=== PATIENT | female | born 1970 | race Native Hawaiian/Other Pacific Islander ===

== ENCOUNTER 2018-04-11 06:30 | Inpatient (IN) | payer MEDICARE ==
[2018-03-31 08:55] VITALS: BMI 23.6
[2018-04-11] MEDS ORDERED: Iodixanol 320 MG/ML 200 ML BOTTLE IV ONE (06:57)
[2018-04-11] MEDS ORDERED: HEPARIN-NS 5,000 UNITS/500 ML 10,000 UNIT/1,000 ML BAG IV ONE (06:57)
[2018-04-11] MEDS ORDERED: Sodium Chloride 0.9% 20 ML IV ONE (06:58)
[2018-04-11] MEDS ORDERED: Thrombin Topical 20,000 Intl Units Spray Kit TOP ONE (06:58)
[2018-04-11] MEDS ORDERED: Midazolam 2 MG/2 ML VIAL ONE (07:25)
[2018-04-11] MEDS ORDERED: Propofol 10 mg/ml Inj (20 ML) ONE (07:25)
[2018-04-11] MEDS ORDERED: ceFAZolin 1 gm FROZEN Premix 1 GM/50 ML ML IVPB ONE (07:59)
[2018-04-11] MEDS ORDERED: White Petrolatum/Mineral Oil Ophth Oint(3.5 gm) ONE (09:51)
[2018-04-11] MEDS ORDERED: ePHEDrine 50 mg/ml Inj ONE (09:51)
[2018-04-11] MEDS ORDERED: Lidocaine Hydrochloride 5 ML INJ ONE (09:51)
[2018-04-11] MEDS ORDERED: Rocuronium 10 mg/ml (10 ml) ONE (09:51)
[2018-04-11] MEDS ORDERED: Neostigmine Methylsulfate 3mg/3ml Syringe IV ONE (12:42)
--- NOTE | 2018-04-11 13:18 | PCM.SURG1 ---
<Sarah Borja - Last Filed: 04/11/18 13:15> Surgeon's Initial Post Op Note - Surgeon's Notes Surgeon: Dr. Iniguez [employer] Tester: Dr. Sarah Borja, PGY-3, Nisha Villasenor MS4 Type of Anesthesia: General Endo Pre-Operative Diagnosis: Peripheral Vascular Disease Operative Findings: See Operative Report Post-Operative Diagnosis: Peripheral Vascular Disease Operation Performed: Right Popliteal-Posterior Tibial Bypass with Left arm Cephalic Vein [place] Specimen/Specimens Removed: N/A Estimated Blood Loss: EBL {In ML}: 200 Blood Products Given: N/A Drains Used: No Drains Post-Op Condition: Good Date of Surgery/Procedure: 04/11/18 Time of Surgery/Procedure: 08:00 <Salvatore Iniguez Jr. - Last Filed: 04/11/18 16:01> Surgeon's Initial Post Op Note - Surgeon's Notes Operation Performed: and operative angiogram
[2018-04-11] MEDS: HYDROmorphone 0.5 mg/0.5 ml ISec IVP PRN ×3 (13:46→15:00)
--- NOTE | 2018-04-11 15:19 | RAD ---
Date of service: 04/11/2018 PROCEDURE: Intraoperative Fluoroscopy. HISTORY: RT. POPLITEAL BYPASS FINDINGS: Fluoroscopic assistance was provided for right leg angiogram. Please refer to the operative report from JOE Farris.
[2018-04-11] MEDS ORDERED: Oxycodone/Acetaminophen 5/325 mg Tab PO PRN (15:39)
[2018-04-11] MEDS: HYDROmorphone 1 mg/ml ISec IVP PRN ×2 (16:09→22:09)
[2018-04-11] MEDS ORDERED: Pneumococcal 23-Valent Vaccine IM ONE (17:39)
--- NOTE | 2018-04-12 01:09 | OP ---
PROCEDURE DATE: 04/11/2018 PREOPERATIVE DIAGNOSES: Rest pain, right foot ischemic ulceration. PROCEDURES CARRIED OUT: Right popliteal to posterior tibial bypass below the ankle with intraoperative arteriogram and vein harvest from left cephalic vein, left arm. SURGEON: Salvatore Iniguez Jr., MD FURNITURE DIPPER: Sarah Borja DO ANESTHESIOLOGIST: Declan Flannery DO ANESTHESIA: General anesthesia. INDICATION FOR PROCEDURE: A 48-year-old woman with ischemic ulceration of the right foot, attempted endovascular intervention, which was unsuccessful. OPERATIVE FINDINGS: Completion of the arteriogram was unsatisfactory. It showed that to the distal anastomosis, there is a high-grade stenosis/occlusion. Nonetheless, there is a brisk flow, good Doppler signals and given the circumstances and difficulty attempting to remediate this, I stopped and carried out no procedures on the basis of the completion arteriogram. The vein had been assumed on the basis of the ultrasound exam to be a decent sized vein in the thigh. However on direct examination in the operating room prior to the operation by ultrasound, we were unable to locate the vein, and the segments of the vein were opened. This is consistent with previous history of interventions. Subsequently, we measured, carried out, dissected the cephalic vein from the left shoulder from the wrist . We were able to dissect and identify this. After we ligated tributaries, we then brought this over and then anastomosed in a reversed fashion to the posterior tibial artery at the ankle and then anastomosed it to the popliteal artery at the knee. On completion of this, there was excellent flow and there were good Doppler signals. Completion of the arteriogram was unsatisfactory as I mentioned above, but we carried out no further intervention after that. Blood loss for the procedure was 200 mL. The operation was more difficult than usual due to the problems associated with identifying and finding a vein and secondary to the scar tissue at the ankle from multiple previous orthopedic interventions. OPERATION CARRIED OUT: Right popliteal to posterior tibial bypass below ankle with reversed cephalic vein harvested from left arm. Salvatore Iniguez Jr., MD cc: Leonel Guillen MD [facility]ENTER[facility]
[2018-04-12 06:35] LABS: BASO # 0.1 K/uL (0.0-0.2); BASO % 0.8 % (0.0-2.0); EOS % 0.1 % (0.0-4.0); HEMOGLOBIN 9.9 g/dL (11.0-16.0); LYMPH # 1.2 K/uL (1.0-4.3); LYMPH % 14.8 % (20.0-40.0); MEAN CELL VOLUME 90.1 fL (81.0-99.0); MEAN CORPUSCULAR HEMOGLOBIN 30.6 pg (27.0-31.0); MEAN PLATELET VOLUME 8.7 fL (7.2-11.7); MONO # 0.7 K/uL (0.0-0.8); MONO % 9.2 % (0.0-10.0); NEUT # 5.9 K/uL (1.8-7.0); NEUT % 75.1 % (50.0-75.0); RBC 3.22 Mil/uL (3.80-5.20); RED CELL DISTRIBUTION WIDTH 13.5 % (11.5-14.5); WHITE BLOOD COUNT 7.8 K/uL (4.8-10.8)
--- NOTE | 2018-04-12 06:53 | CP.PCM.CON ---
<Socorro Brewer - Last Filed: 04/12/18 10:37> History of Present Illness - History of Present Illness History of Present Illness: Patient is a 48 yo female with a history of PVD and T2DM who presents s/p R popliteal-posterior tibial bypass with L arm cephalic vein. She is post-op day 1. She states her leg is in pain but it is controlled with medication. She just had the [place] removed and has not yet urinated or had a BM. She is able to tolerate PO intake. She states that at home she utilizes a cane to walk. 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 Guillen Review of Systems - Constitutional Constitutional: absent: Chills, Fatigue, Fever, Headache - EENT Eyes: absent: Change in Vision Ears: absent: Decreased Hearing Nose/Mouth/Throat: absent: Nasal Congestion, Sore Throat - Cardiovascular Cardiovascular: absent: Chest Pain, Diaphoresis, Dyspnea, Palpitations - Respiratory Respiratory: absent: Cough, Dyspnea, Hemoptysis - Gastrointestinal Gastrointestinal: absent: Abdominal Pain, Diarrhea, Nausea, Vomiting - Genitourinary Genitourinary: absent: Hematuria - Musculoskeletal Musculoskeletal: As Per HPI - Integumentary Integumentary: As Per HPI - Neurological Neurological: absent: Dizziness, Focal Weakness, Sensory Deficit - Psychiatric Psychiatric: absent: Anxiety, Depression - Endocrine Endocrine: absent: Fatigue, Palpitations - Hematologic/Lymphatic Hematologic: absent: Easy Bleeding, Easy Bruising, Lymphadenopathy Past Patient History - Infectious Disease Hx of Infectious Diseases: None - Tetanus Immunizations Tetanus Immunization: Unknown - Past Medical History & Family History Past Medical History?: Yes Past Family History: Reviewed and not pertinent - Past Social History Smoking Status: Former Smoker Chewing Tobacco Use: No Cigar Use: No Alcohol: None Drugs: Denies Home Situation {Lives}: With Family (son) Domestic Violence: Negative - CARDIAC Hx Cardiac Disorders: Yes Hx Circulatory Problems: Yes Hx Peripheral Edema: Yes (Right ankle) Hx Peripheral Vascular Disease: Yes - PULMONARY Hx Respiratory Disorders: No - NEUROLOGICAL Hx Neurological Disorder: Yes Hx Migraine: Yes Hx Paralysis: No Hx Transient Ischemic Attacks (TIA): Yes (15 years ago) - HEENT Hx HEENT Problems: No - RENAL Hx Chronic Kidney Disease: No - ENDOCRINE/METABOLIC Hx Endocrine Disorders: Yes Hx Diabetes Mellitus Type 2: Yes - HEMATOLOGICAL/ONCOLOGICAL Hx Blood Disorders: No - INTEGUMENTARY Hx Dermatological Problems: Yes Other/Comment: Healing close ulcer lower right leg - MUSCULOSKELETAL/RHEUMATOLOGICAL Hx Musculoskeletal Disorders: Yes Hx Back Pain: Yes Hx Falls: No Hx Fractures: Yes (Right ankle) - GASTROINTESTINAL Hx Gastrointestinal Disorders: No - GENITOURINARY/GYNECOLOGICAL Hx Genitourinary Disorders: No - PSYCHIATRIC Hx Psychophysiologic Disorder: No Hx Substance Use: No - SURGICAL HISTORY Hx Surgeries: Yes Hx Angiogram: Yes Hx Open Reduction Internal Fixation: Yes (Right ankle) - ANESTHESIA Hx Anesthesia: Yes Hx Anesthesia Reactions: No Hx Malignant Hyperthermia: No Meds Allergies/Adverse Reactions: Allergies Allergy/AdvReac Type Severity Reaction Status Date / Time apple Allergy Intermediate ITCHING Verified 03/03/17 12:01 peach Allergy Intermediate ITCHING Verified 03/03/17 12:01 pear Allergy Intermediate ITCHING Verified 03/03/17 12:01 strawberry Allergy Intermediate ITCHING Verified 03/03/17 12:01 morphine AdvReac Intermediate RASH Verified 03/03/17 12:01 STRINGBEANS Allergy Intermediate ITCHING Uncoded 03/03/17 12:01 - Medications Medications: Current Medications Acetaminophen (Tylenol 325mg Tab) 650 mg PO Q6 PRN PRN Reason: Fever >100.4 F Aspirin (Aspirin Chewable) 81 mg PO DAILY [facility] Clopidogrel Bisulfate (Plavix) 75 mg PO DAILY [facility] Docusate Sodium (Colace) 100 mg PO BID [facility] Last Admin: 04/11/18 17:18 Dose: 100 mg Famotidine (Pepcid) 20 mg PO BID [facility] Last Admin: 04/11/18 17:14 Dose: 20 mg Gabapentin (Neurontin) 600 mg PO TID [facility] Last Admin: 04/11/18 17:19 Dose: 600 mg Hydromorphone HCl (Dilaudid) 1 mg IVP Q6H PRN PRN Reason: Pain, moderate (4-7) Last Admin: 04/11/18 22:09 Dose: 1 mg Ondansetron HCl (Zofran Inj) 4 mg IVP Q6 PRN PRN Reason: Nausea/Vomiting Oxycodone/Acetaminophen (Percocet 5/325 Mg Tab) 2 tab PO Q4H PRN PRN Reason: Pain, moderate (4-7) Stop: 04/14/18 15:40 Pneumococcal Polyvalent Vaccine (Pneumovax 23 Vaccine) 0.5 ml IM .ONCE ONE Stop: 04/14/18 10:01 Physical Exam - Constitutional Appears: No Acute Distress - Head Exam Head Exam: ATRAUMATIC, NORMAL INSPECTION, NORMOCEPHALIC - Eye Exam Eye Exam: EOMI, Normal appearance, PERRL - ENT Exam ENT Exam: Mucous Membranes Moist, Normal Exam - Neck Exam Neck exam: Positive for: Normal Inspection - Respiratory Exam Respiratory Exam: Clear to Auscultation Bilateral, NORMAL BREATHING PATTERN - Cardiovascular Exam Cardiovascular Exam: REGULAR RHYTHM, +S1, +S2 - GI/Abdominal Exam GI & Abdominal Exam: Normal Bowel Sounds, Soft. absent: Tenderness - Rectal Exam Rectal Exam: Deferred - Extremities Exam Additional comments: LUE and RLE wrapped in clean bandages- patient just examined by surgeon - Neurological Exam Neurological exam: Alert, CN II-XII Intact, Oriented x3 - Psychiatric Exam Psychiatric exam: Normal Affect, Normal Mood - Skin Skin Exam: Normal Color, Warm Results - Vital Signs Recent Vital Signs: Last Vital Signs Temp 98 F 04/12/18 04:00 Pulse 73 04/12/18 06:00 Resp 14 04/12/18 06:00 BP 112/72 04/12/18 05:59 Pulse Ox 96 04/12/18 06:00 - Labs Result Diagrams: 04/12/18 06:28 04/12/18 06:28 Labs: Laboratory Results - last 24 hr 04/11/18 04/11/18 04/11/18 07:32 07:37 13:23 POC Glucose (mg/dL) 102 154 H Blood Type O POSITIVE Antibody Screen Negative 04/11/18 04/11/18 16:59 21:11 POC Glucose (mg/dL) 182 H 144 H Blood Type Antibody Screen Assessment & Plan - Assessment and Plan (Free Text) Assessment: Patient is a 48 yo female who presented s/p R popliteal-posterior tibial bypass. She tolerated the surgery well without complications. Patient is stable and able to be drowngraded to telemetry unit. Plan: Neuro: - Gabapentin 600 mg PO TID CV: - POD1 R popliteal-posterior tibial bypass with L arm cephalic vein - ASA 81 mg PO daily - Plavix 75 mg PO daily - Tylenol 650 mg PO Q6H PRN - Percocet 5/325 mg PO Q4H PRN - Dilaudid 1 mg IV Q6H PRN - Surgery primary ([place]) - PMD consulted (Mindy) - PT Pulm: - Maintain spO2>92%- NC PRN GI: - Zofran 4 mg PO Q6H PRN - Colace 100 mg PO BID - Consistent carb diet Renal: - I's & O's - Replete electrolytes PRN Endo: - Maintain euglycemia Heme: - Hgb 9.9 - Monitor H&H Ppx: VTE: hold post-op, start as per surgery GI: Pepcid 20 mg PO daily IVF: not indicated Code status: full code Case discussed with attending, Dr. Amos. PGY-1 Socorro Brewer D.O. <Gurinder Amos - Last Filed: 04/12/18 18:18> Meds - Medications Medications: Current Medications Acetaminophen (Tylenol 325mg Tab) 650 mg PO Q6 PRN PRN Reason: Fever >100.4 F or pain Aspirin (Aspirin Chewable) 81 mg PO DAILY [facility] Last Admin: 04/12/18 09:32 Dose: 81 mg Clopidogrel Bisulfate (Plavix) 75 mg PO DAILY [facility] Last Admin: 04/12/18 09:32 Dose: 75 mg Docusate Sodium (Colace) 100 mg PO BID [facility] Last Admin: 04/12/18 18:16 Dose: 100 mg Famotidine (Pepcid) 20 mg PO BID [facility] Last Admin: 04/12/18 18:17 Dose: 20 mg Gabapentin (Neurontin) 300 mg PO TID [facility] Last Admin: 04/12/18 18:16 Dose: 300 mg Hydromorphone HCl (Dilaudid) 1 mg IVP Q6H PRN PRN Reason: Pain, moderate (4-7) Last Admin: 10/30/18 07:50 Dose: 1 mg Ondansetron HCl (Zofran Inj) 4 mg IVP Q6 PRN PRN Reason: Nausea/Vomiting Oxycodone/Acetaminophen (Percocet 5/325 Mg Tab) 2 tab PO Q4H PRN PRN Reason: Pain, moderate (4-7) Stop: 04/14/18 15:40 Pneumococcal Polyvalent Vaccine (Pneumovax 23 Vaccine) 0.5 ml IM .ONCE ONE Stop: 04/14/18 10:01 Results - Vital Signs Recent Vital Signs: Last Vital Signs Temp 99 F 04/12/18 16:00 Pulse 81 04/12/18 18:00 Resp 15 04/12/18 18:00 BP 113/59 L 04/12/18 17:59 Pulse Ox 97 04/12/18 18:00 - Labs Result Diagrams: 04/12/18 06:28 04/12/18 06:28 Labs: Laboratory Results - last 24 hr 04/11/18 04/12/18 04/12/18 21:11 06:28 06:28 WBC 7.8 RBC 3.22 L Hgb 9.9 L D Hct 29.0 L MCV 90.1 MCH 30.6 MCHC 34.0 RDW 13.5 Plt Count 241 MPV 8.7 Neut % (Auto) 75.1 H Lymph % (Auto) 14.8 L [place] % (Auto) 9.2 Eos % (Auto) 0.1 Baso % (Auto) 0.8 Neut # (Auto) 5.9 Lymph # (Auto) 1.2 [place] # (Auto) 0.7 Eos # (Auto) 0.0 Baso # (Auto) 0.1 Sodium 136 Potassium 4.0 Chloride 101 Carbon Dioxide 26 Anion Gap 13 BUN 8 Creatinine 0.5 L Est GFR ( Amer) > 60 Est GFR (Non-Af Amer) > 60 POC Glucose (mg/dL) 144 H Random Glucose 105 Calcium 8.8 Total Bilirubin 0.4 AST 17 ALT 20 Alkaline Phosphatase 78 Total Protein 7.2 Albumin 3.6 Globulin 3.7 Albumin/Globulin Ratio 1.0 04/12/18 04/12/18 04/12/18 07:28 11:22 17:02 WBC RBC Hgb Hct MCV MCH MCHC RDW Plt Count MPV Neut % (Auto) Lymph % (Auto) [place] % (Auto) Eos % (Auto) Baso % (Auto) Neut # (Auto) Lymph # (Auto) [place] # (Auto) Eos # (Auto) Baso # (Auto) Sodium Potassium Chloride Carbon Dioxide Anion Gap BUN Creatinine Est GFR ( Amer) Est GFR (Non-Af Amer) POC Glucose (mg/dL) 114 H 119 H 133 H Random Glucose Calcium Total Bilirubin AST ALT Alkaline Phosphatase Total Protein Albumin Globulin Albumin/Globulin Ratio Attending/Attestation - Attestation I have personally seen and examined this patient.: Yes I have fully participated in the care of the patient.: Yes I have reviewed all pertinent clinical information: Yes Notes (Text): 04/12/18 18:18 Patient seen and examined Stable for transfer to floor
[2018-04-12 07:02] LABS: ALBUMIN 3.6 g/dL (3.5-5.0); ALT/SGPT 20 U/L (9-52); AST/SGOT 17 U/L (14-36); BLOOD UREA NITROGEN 8 mg/dL (7-17); CALCIUM 8.8 mg/dl (8.6-10.4); GFR NON-AFRICAN AMERICAN > 60
[2018-04-12] MEDS: HYDROmorphone 1 mg/ml ISec IVP PRN (07:50)
--- NOTE | 2018-04-12 08:21 | CP.PCM.PN ---
Subjective - Date & Time of Evaluation Date of Evaluation: 04/12/18 Time of Evaluation: 08:20 - Subjective Subjective: excellent result with palpable pulse and excellent dopplers dc [facility]/ [facility] therapy in am Objective - Vital Signs/Intake and Output Vital Signs (last 24 hours): Temp Pulse Resp BP Pulse Ox 98 F 83 12 111/69 93 L 04/12/18 04:00 04/12/18 08:00 04/12/18 08:00 04/12/18 07:59 04/12/18 08:00 Intake and Output: 04/12/18 04/12/18 06:59 18:59 Intake Total 720 Output Total 720 275 Balance 0 -275 - Medications Medications: Current Medications Acetaminophen (Tylenol 325mg Tab) 650 mg PO Q6 PRN PRN Reason: Fever >100.4 F or pain Aspirin (Aspirin Chewable) 81 mg PO DAILY [facility] Clopidogrel Bisulfate (Plavix) 75 mg PO DAILY [facility] Docusate Sodium (Colace) 100 mg PO BID [facility] Last Admin: 04/11/18 17:18 Dose: 100 mg Famotidine (Pepcid) 20 mg PO BID [facility] Last Admin: 04/11/18 17:14 Dose: 20 mg Gabapentin (Neurontin) 600 mg PO TID [facility] Last Admin: 04/11/18 17:19 Dose: 600 mg Hydromorphone HCl (Dilaudid) 1 mg IVP Q6H PRN PRN Reason: Pain, moderate (4-7) Last Admin: 04/12/18 07:50 Dose: 1 mg Ondansetron HCl (Zofran Inj) 4 mg IVP Q6 PRN PRN Reason: Nausea/Vomiting Oxycodone/Acetaminophen (Percocet 5/325 Mg Tab) 2 tab PO Q4H PRN PRN Reason: Pain, moderate (4-7) Stop: 04/14/18 15:40 Pneumococcal Polyvalent Vaccine (Pneumovax 23 Vaccine) 0.5 ml IM .ONCE ONE Stop: 04/14/18 10:01 - Labs Labs: 04/12/18 06:28 04/12/18 06:28
--- NOTE | 2018-04-13 11:26 | CON ---
DATE: 04/11/2018 HISTORY OF PRESENT ILLNESS: A 48-year-old female with history of peripheral vascular disease. Neurologic complaints of leg pain, foot pain, bypass surgery of the lower extremity. She had multiple endoscopic interventions in the past. The patient is a smoker. PHYSICAL EXAMINATION: GENERAL: The patient is awake, alert, and oriented. VITAL SIGNS: Temperature 98, pulse 90. HEENT: Within normal limits. NECK: Supple. CHEST: Symmetrical. HEART: Regular. ABDOMEN: Soft. EXTREMITIES: . IMPRESSION AND PLAN: The patient suffered from peripheral vascular disease, coronary artery bypass, monitor blood pressure. Monitor hemoglobin and hematocrit again. Leonel Guillen MD
--- NOTE | 2018-04-13 13:17 | CP.PCM.PN ---
Subjective - Date & Time of Evaluation Date of Evaluation: 04/13/18 Time of Evaluation: 13:15 - Subjective Subjective: Medicine Consult Note for Dr. Guillen's Service Ms. Mcgraw is a 48 yo female with a history of PVD and T2DM who presents s/p R popliteal-posterior tibial bypass with L arm cephalic vein harvest. She is post- op day 2. Medicine consult placed for evaluation and treatment of her chronic medical conditions. Patient only complains of pain at surgical sites today. Her pain is controlled with her medication ROS POSITIVES: L arm Pain, Right LE pain NEGATIVES: Fever, chills, SOB, headache, Chest pain, palpitations, abdominal pain, n/v/d, constipation, urinary symptoms. PMHx: PVD, T2DM, Migrains, CVA (w/o residual symptoms) PSHx: As stated above Allergies: Morphine (Rash), SocailHx: non-Cont. FamHx: Non-Cont. Meds: per AUG PMD: Dr. Guillen. Objective - Vital Signs/Intake and Output Vital Signs (last 24 hours): Temp Pulse Resp BP Pulse Ox 98.9 F 74 15 112/67 96 04/13/18 08:41 04/13/18 07:00 04/13/18 07:00 04/13/18 06:59 04/13/18 07:00 Intake and Output: 04/13/18 04/13/18 06:59 18:59 Intake Total 340 Output Total 1150 Balance -810 - Medications Medications: Current Medications Acetaminophen (Tylenol 325mg Tab) 650 mg PO Q6 PRN PRN Reason: Fever >100.4 F or pain Last Admin: 04/13/18 08:41 Dose: 650 mg Aspirin (Aspirin Chewable) 81 mg PO DAILY [facility] Last Admin: 04/13/18 10:16 Dose: 81 mg Clopidogrel Bisulfate (Plavix) 75 mg PO DAILY [facility] Last Admin: 04/13/18 10:16 Dose: 75 mg Docusate Sodium (Colace) 100 mg PO BID [facility] Last Admin: 04/13/18 10:16 Dose: 100 mg Famotidine (Pepcid) 20 mg PO BID [facility] Last Admin: 04/13/18 10:16 Dose: 20 mg Gabapentin (Neurontin) 300 mg PO TID [facility] Last Admin: 04/13/18 10:16 Dose: 300 mg Hydromorphone HCl (Dilaudid) 1 mg IVP Q6H PRN PRN Reason: Pain, moderate (4-7) Last Admin: 04/12/18 07:50 Dose: 1 mg Ondansetron HCl (Zofran Inj) 4 mg IVP Q6 PRN PRN Reason: Nausea/Vomiting Oxycodone/Acetaminophen (Percocet 5/325 Mg Tab) 2 tab PO Q4H PRN PRN Reason: Pain, moderate (4-7) Stop: 04/14/18 15:40 Pneumococcal Polyvalent Vaccine (Pneumovax 23 Vaccine) 0.5 ml IM .ONCE ONE Stop: 04/14/18 10:01 - Labs Labs: 04/12/18 06:28 04/12/18 06:28 - Additional Findings Additional findings: - Constitutional Appears: No Acute Distress - Head Exam Head Exam: ATRAUMATIC, NORMAL INSPECTION, NORMOCEPHALIC - Eye Exam Eye Exam: EOMI, Normal appearance, PERRL - ENT Exam ENT Exam: Mucous Membranes Moist, Normal Exam - Neck Exam Neck exam: Positive for: Normal Inspection - Respiratory Exam Respiratory Exam: Clear to Auscultation Bilateral, NORMAL BREATHING PATTERN - Cardiovascular Exam Cardiovascular Exam: REGULAR RHYTHM, +S1, +S2 - GI/Abdominal Exam GI & Abdominal Exam: Normal Bowel Sounds, Soft. absent: Tenderness - Rectal Exam Rectal Exam: Deferred - Extremities Exam Additional comments: LUE and RLE wrapped in clean bandages- patient just examined by surgeon - Neurological Exam Neurological exam: Alert, CN II-XII Intact, Oriented x3, No Motor or Sensory deficit - Psychiatric Exam Psychiatric exam: Normal Affect, Normal Mood - Skin Skin Exam: Normal Color, Warm Assessment and Plan - Assessment and Plan (Free Text) Assessment: 48 yo female with a history of PVD and T2DM who presents s/p R popliteal- posterior tibial bypass with L arm cephalic vein harvest. She is post-op day 2. Plan: s/p R popliteal-posterior tibial bypass with L arm cephalic vein harvest/PVD Post -op Day #2 Management per Surgery team Meds: Tylenol PRN ASA 81 Daily Palvix 75mg Daily Colace 100mg BID Pepcid 20mg BID Gabapentin 300mg PO TID [facility] Zofran 4mg PO IVP Q6H Percocet 2tabs PO Q4H PRN DM II Meds: Regular Insulin Sliding Scale. Proph Pepciteo Maddoxx Patient discussed with Dr. Mindy Jones, PGY-II
--- NOTE | 2018-04-13 13:40 | CP.PCM.PN ---
Subjective - Date & Time of Evaluation Date of Evaluation: 04/13/18 Time of Evaluation: 13:37 - Subjective Subjective: 48 y/o female POD #2 s/p right popliteal-posterior tibial bypass with left cephalic vein harvest, was seen and examined at bedside today. No acute events overnight. Patient states she is doing well. Patient states that her pain is controlled. Patient continues to keep right lower extremity elevated. Right lower extremity and left upper extremity dressing clean, dry, and intact. Patient is tolerating diet. Patient denies chest pain, shortness of breath, nausea, vomiting, or diarrhea. Objective - Vital Signs/Intake and Output Vital Signs (last 24 hours): Temp Pulse Resp BP Pulse Ox 98.9 F 74 15 112/67 96 04/13/18 08:41 04/13/18 07:00 04/13/18 07:00 04/13/18 06:59 04/13/18 07:00 Intake and Output: 04/13/18 04/13/18 06:59 18:59 Intake Total 340 Output Total 1150 Balance -810 - Medications Medications: Current Medications Acetaminophen (Tylenol 325mg Tab) 650 mg PO Q6 PRN PRN Reason: Fever >100.4 F or pain Last Admin: 04/13/18 08:41 Dose: 650 mg Aspirin (Aspirin Chewable) 81 mg PO DAILY [facility] Last Admin: 04/13/18 10:16 Dose: 81 mg Clopidogrel Bisulfate (Plavix) 75 mg PO DAILY [facility] Last Admin: 04/13/18 10:16 Dose: 75 mg Docusate Sodium (Colace) 100 mg PO BID [facility] Last Admin: 04/13/18 10:16 Dose: 100 mg Famotidine (Pepcid) 20 mg PO BID [facility] Last Admin: 04/13/18 10:16 Dose: 20 mg Gabapentin (Neurontin) 300 mg PO TID [facility] Last Admin: 04/13/18 10:16 Dose: 300 mg Hydromorphone HCl (Dilaudid) 1 mg IVP Q6H PRN PRN Reason: Pain, moderate (4-7) Last Admin: 04/12/18 07:50 Dose: 1 mg Ondansetron HCl (Zofran Inj) 4 mg IVP Q6 PRN PRN Reason: Nausea/Vomiting Oxycodone/Acetaminophen (Percocet 5/325 Mg Tab) 2 tab PO Q4H PRN PRN Reason: Pain, moderate (4-7) Stop: 04/14/18 15:40 Pneumococcal Polyvalent Vaccine (Pneumovax 23 Vaccine) 0.5 ml IM .ONCE ONE Stop: 04/14/18 10:01 - Labs Labs: 04/12/18 06:28 04/12/18 06:28 - Constitutional Appears: Well, No Acute Distress - Head Exam Head Exam: ATRAUMATIC, NORMAL INSPECTION - Eye Exam Eye Exam: PERRL Pupil Exam: NORMAL ACCOMODATION, PERRL - ENT Exam ENT Exam: Mucous Membranes Moist, Normal Exam - Neck Exam Neck Exam: Full ROM Additional comments: Trachea midline - Respiratory Exam Respiratory Exam: Clear to Ausculation Bilateral, NORMAL BREATHING PATTERN - Cardiovascular Exam Cardiovascular Exam: REGULAR RHYTHM, +S1, +S2 - GI/Abdominal Exam GI & Abdominal Exam: Soft, Normal Bowel Sounds. absent: Rigid, Tenderness - Rectal Exam Rectal Exam: Deferred - Extremities Exam Additional comments: Right lower extremity dressing clean, dry, intact. Dopplerable DP and PT pulses on right lower extremity. Left upper extremity dressing clean, dry, intact. - Back Exam Back Exam: NORMAL INSPECTION. absent: CVA tenderness (L), CVA tenderness (R) - Neurological Exam Neurological Exam: Alert, Awake, Oriented x3 - Psychiatric Exam Psychiatric exam: Normal Affect, Normal Mood - Skin Skin Exam: Dry, Normal Color, Warm Assessment and Plan - Assessment and Plan (Free Text) Assessment: 48 y/o female POD #2 s/p right popliteal-posterior tibial bypass with left cephalic vein harvest, is healing well. - Continue PT - Continue to elevate right lower extremity - Regular diet - DVT ppx - encourage IS use - Plan to discharge home with home PT - Wound care instructions: Cover right lower extremity incisions and left upper extremity incisions with 4x4 dressings with tape or 4x4 dressing with islands. Will discuss with Dr. Geetha Borja, PGY-3
[2018-04-14 08:57] LABS: BASO % 0.4 % (0.0-2.0); EOS # 0.1 K/uL (0.0-0.7); EOS % 0.8 % (0.0-4.0); HEMOGLOBIN 10.8 g/dL (11.0-16.0); LYMPH # 1.3 K/uL (1.0-4.3); MEAN CELL VOLUME 90.4 fL (81.0-99.0); MEAN CORPUSCULAR HEMOGLOBIN 30.8 pg (27.0-31.0); MEAN CORPUSCULAR HGB CONC 34.1 g/dL (33.0-37.0); MEAN PLATELET VOLUME 7.7 fL (7.2-11.7); MONO # 0.4 K/uL (0.0-0.8); NEUT # 5.6 K/uL (1.8-7.0); NEUT % 75.8 % (50.0-75.0); RBC 3.49 Mil/uL (3.80-5.20); RED CELL DISTRIBUTION WIDTH 13.6 % (11.5-14.5); WHITE BLOOD COUNT 7.4 K/uL (4.8-10.8)
[2018-04-14 09:14] LABS: ALB/GLOB RATIO 0.8 (1.0-2.1); ALBUMIN 3.5 g/dL (3.5-5.0); ALT/SGPT 39 U/L (9-52); AST/SGOT 52 U/L (14-36); BLOOD UREA NITROGEN 8 mg/dL (7-17); CALCIUM 8.9 mg/dl (8.6-10.4); GFR NON-AFRICAN AMERICAN > 60
--- NOTE | 2018-04-14 09:30 | CP.PCM.DIS ---
Provider - Provider Date of Admission: 04/11/18 06:30 Attending physician: Salvatore Iniguez Jr, MD Time Spent in preparation of Discharge (in minutes): 35 Diagnosis - Discharge Diagnosis (1) S/P popliteal-distal bypass surgery Status: Acute Priority: High (2) Peripheral arterial occlusive disease Status: Chronic Priority: High (3) Post-op pain Status: Acute Priority: High (4) Diabetes Status: Chronic Priority: Low (5) TIA (transient ischemic attack) Status: Chronic Priority: Low Hospital Course - Lab Results Lab Results: Micro Results 04/11/18 19:26 Naris MRSA Culture (Admit) - Final MRSA NOT DETECTED Most Recent Lab Values WBC 7.4 K/uL (4.8-10.8) 04/14/18 08:53 RBC 3.49 Mil/uL (3.80-5.20) L 04/14/18 08:53 Hgb 10.8 g/dL (11.0-16.0) L 04/14/18 08:53 Hct 31.6 % (34.0-47.0) L 04/14/18 08:53 MCV 90.4 fL (81.0-99.0) 04/14/18 08:53 MCH 30.8 pg (27.0-31.0) 04/14/18 08:53 MCHC 34.1 g/dL (33.0-37.0) 04/14/18 08:53 RDW 13.6 % (11.5-14.5) 04/14/18 08:53 Plt Count 276 K/uL (130-400) 04/14/18 08:53 MPV 7.7 fL (7.2-11.7) 04/14/18 08:53 Neut % (Auto) 75.8 % (50.0-75.0) H 04/14/18 08:53 Lymph % (Auto) 18.0 % (20.0-40.0) L 04/14/18 08:53 Evans % (Auto) 5.0 % (0.0-10.0) 04/14/18 08:53 Eos % (Auto) 0.8 % (0.0-4.0) 04/14/18 08:53 Baso % (Auto) 0.4 % (0.0-2.0) 04/14/18 08:53 Neut # (Auto) 5.6 K/uL (1.8-7.0) 04/14/18 08:53 Lymph # (Auto) 1.3 K/uL (1.0-4.3) 04/14/18 08:53 Evans # (Auto) 0.4 K/uL (0.0-0.8) 04/14/18 08:53 Eos # (Auto) 0.1 K/uL (0.0-0.7) 04/14/18 08:53 Baso # (Auto) 0.0 K/uL (0.0-0.2) 04/14/18 08:53 Sodium 141 mmol/L (132-148) 04/14/18 08:53 Potassium 3.8 mmol/L (3.6-5.2) 04/14/18 08:53 Chloride 102 mmol/L (98-107) 04/14/18 08:53 Carbon Dioxide 29 mmol/L (22-30) 04/14/18 08:53 Anion Gap 13 (10-20) 04/14/18 08:53 BUN 8 mg/dL (7-17) 04/14/18 08:53 Creatinine 0.5 mg/dL (0.7-1.2) L 04/14/18 08:53 Est GFR ( Amer) > 60 04/14/18 08:53 Est GFR (Non-Af Amer) > 60 04/14/18 08:53 POC Glucose (mg/dL) 124 mg/dL (65-110) H 04/13/18 21:27 Random Glucose 153 mg/dL (65-105) H 04/14/18 08:53 Calcium 8.9 mg/dl (8.6-10.4) 04/14/18 08:53 Total Bilirubin 0.4 mg/dL (0.2-1.3) 04/14/18 08:53 AST 52 U/L (14-36) H D 04/14/18 08:53 ALT 39 U/L (9-52) 04/14/18 08:53 Alkaline Phosphatase 113 U/L (38-126) 04/14/18 08:53 Total Protein 7.6 g/dL (6.3-8.3) 04/14/18 08:53 Albumin 3.5 g/dL (3.5-5.0) 04/14/18 08:53 Globulin 4.1 gm/dL (2.2-3.9) H 04/14/18 08:53 Albumin/Globulin Ratio 0.8 (1.0-2.1) L 04/14/18 08:53 Blood Type O POSITIVE 04/11/18 07:37 Antibody Screen Negative 04/11/18 07:37 - Hospital Course Hospital Course: Pt is a 48F with PMH of PAD who presented through same day surgery for Right popliteal posterior tibial bypass with left cephalic vein harvest. Patient was admitted to the ICU for close monitoring and recovered well. PT evaluated the patient and recommended continued PT at home, but patient was tolerated pain with Discharge Exam - Head Exam Head Exam: ATRAUMATIC, NORMAL INSPECTION Discharge Plan - Follow Up Plan Condition: GOOD Disposition: HOME/ ROUTINE Instructions: Femoropopliteal Bypass Surgery (DC) Additional Instructions: Call Dr. Iniguez's office to schedule an appointment for follow up in 1-2 weeks Follow up with your primary doctor in the next week Work with home PT Wound care by nursing as instructed Call Dr. Iniguez's office or come to the ER if you have severe bleeding, fevers >100.4 after taking tylenol, increased numbness or coldness of the right foot, SOB, chest pain, or any other concerning symptoms Do not get the incision wet until cleared to do so by Dr. Iniguez Referrals: Salvatore Iniguez Jr., MD [Staff Provider] -
[2018-04-14] MEDS ORDERED: Pneumococcal 23-Valent Vaccine IM ONE (10:00)
[2018-04-14] MEDS: (Novolin R) Insulin Human Regular 100 units/ml vial SC SCH ×4 (10:33→21:24)
[2018-04-14] MEDS ORDERED: Influenza Virus Vaccine 45 mcg/0.5 ml Syr (36 months - 7 yrs) IM ONE (10:35)
[2018-04-14] MEDS: Enoxaparin 40 mg Syringe SC SCH (10:46)
[2018-04-14] MEDS ORDERED: Influenza Vaccine 60 MCG/0.5 ML SYR (3 yr & up) IM ONE (11:00)
--- NOTE | 2018-04-14 12:14 | CP.PCM.PN ---
Addendum entered and electronically signed by Latisha Ramos 04/15/18 07:14: Patient to be discharged per surgery. Medicine team signing off. Please reconsult as needed. Original Note: Subjective - Date & Time of Evaluation Date of Evaluation: 04/14/18 Time of Evaluation: 12:14 - Subjective Subjective: PGY2- Progress note for Dr. Guillen Patient was seen and examined at bedside in no acute distress. Patient was oob to chair. Patient admits to mild pain and swelling in the right LE, but otherwise has no complaints. Patient is passing gas, but has not had a BM since operation. Patient is tolerating diet. Patient denies chest pain, palpitations, dyspnea, cough, abdominal pain, nausea, vomiting, fevers, headaches. Objective - Vital Signs/Intake and Output Vital Signs (last 24 hours): Temp Pulse Resp BP Pulse Ox 98.4 F 89 17 105/67 97 04/14/18 05:35 04/14/18 07:00 04/14/18 07:00 04/14/18 06:59 04/14/18 07:00 Intake and Output: 04/14/18 04/14/18 06:59 18:59 Intake Total 1000 Output Total 1400 Balance -400 - Medications Medications: Current Medications Acetaminophen (Tylenol 325mg Tab) 650 mg PO Q6 PRN PRN Reason: Fever >100.4 F or pain Last Admin: 04/14/18 04:35 Dose: 650 mg Aspirin (Aspirin Chewable) 81 mg PO DAILY [facility] Last Admin: 04/14/18 10:46 Dose: 81 mg Clopidogrel Bisulfate (Plavix) 75 mg PO DAILY [facility] Last Admin: 04/14/18 10:46 Dose: 75 mg Docusate Sodium (Colace) 100 mg PO BID [facility] Last Admin: 04/14/18 10:46 Dose: 100 mg Enoxaparin Sodium (Lovenox) 40 mg SC DAILY [facility] Last Admin: 04/14/18 10:46 Dose: 40 mg Famotidine (Pepcid) 20 mg PO BID [facility] Last Admin: 04/14/18 10:46 Dose: 20 mg Gabapentin (Neurontin) 300 mg PO TID [facility] Last Admin: 04/14/18 10:46 Dose: 300 mg Hydromorphone HCl (Dilaudid) 1 mg IVP Q6H PRN PRN Reason: Pain, moderate (4-7) Last Admin: 04/12/18 07:50 Dose: 1 mg Insulin Human Regular (Novolin R) 0 unit SC [facility]; Protocol Last Admin: 04/14/18 10:33 Dose: Not Given Ondansetron HCl (Zofran Inj) 4 mg IVP Q6 PRN PRN Reason: Nausea/Vomiting Oxycodone/Acetaminophen (Percocet 5/325 Mg Tab) 2 tab PO Q4H PRN PRN Reason: Pain, moderate (4-7) Stop: 04/14/18 15:40 - Labs Labs: 04/14/18 08:53 04/14/18 08:53 - Constitutional Appears: No Acute Distress - Head Exam Head Exam: ATRAUMATIC, NORMAL INSPECTION - Eye Exam Eye Exam: EOMI, Periorbital tenderness - ENT Exam ENT Exam: Mucous Membranes Moist - Respiratory Exam Respiratory Exam: Clear to Ausculation Bilateral, NORMAL BREATHING PATTERN. absent: Rales, Rhonchi, Wheezes, Respiratory Distress - Cardiovascular Exam Cardiovascular Exam: REGULAR RHYTHM, +S1, +S2 - GI/Abdominal Exam GI & Abdominal Exam: Soft, Normal Bowel Sounds. absent: Distended, Firm, Guarding, Tenderness - Extremities Exam Extremities Exam: Pedal Edema (Right foot s/p procedure) Additional comments: Left UE: mandy in place, incision clean, dry, intact. No erythema or purlent discharge noted; Radial pulses palpable; sensation intact. RUE: sensation intact, motor intact; dressing is clean, dry, and intact; pulses palpable - Neurological Exam Neurological Exam: Alert, Awake, Oriented x3 - Psychiatric Exam Psychiatric exam: Normal Affect, Normal Mood - Skin Skin Exam: Dry, Normal Color, Warm Assessment and Plan - Assessment and Plan (Free Text) Plan: 48 yo female with a history of PVD and T2DM who presents s/p R popliteal- posterior tibial bypass with L arm cephalic vein harvest. POD# 3. Plan: s/p R popliteal-posterior tibial bypass with L arm cephalic vein harvest/PVD Post -op Day #3 Management per Surgery team Meds: Tylenol PRN ASA 81 Daily Palvix 75mg Daily Colace 100mg BID Pepcid 20mg BID Gabapentin 300mg PO TID JOSE Zofran 4mg PO IVP Q6H Percocet 2tabs PO Q4H PRN DM II Accuchecks Meds: Regular Insulin Sliding Scale. Proph Pepcid Lovenox All management and orders per Dr. Guillen.
[2018-04-14 15:40] VITALS: RESP 20
--- NOTE | 2018-04-14 17:44 | CP.PCM.PN ---
Subjective - Date & Time of Evaluation Date of Evaluation: 04/14/18 Time of Evaluation: 06:50 - Subjective Subjective: Surgery progress note for Dr. Iniguez Patient seen and examined at bedside. No adverse events overnight. Patient states pain in leg currently managed adequately. Objective - Vital Signs/Intake and Output Vital Signs (last 24 hours): Temp Pulse Resp BP Pulse Ox 98 F 73 20 115/77 97 04/14/18 15:39 04/14/18 16:36 04/14/18 15:39 04/14/18 15:39 04/14/18 15:39 Intake and Output: 04/14/18 04/14/18 06:59 18:59 Intake Total 1750 Output Total 1900 Balance -150 - Medications Medications: Current Medications Acetaminophen (Tylenol 325mg Tab) 650 mg PO Q6 PRN PRN Reason: Fever >100.4 F or pain Last Admin: 04/14/18 13:45 Dose: 650 mg Aspirin (Aspirin Chewable) 81 mg PO DAILY [facility] Last Admin: 04/14/18 10:46 Dose: 81 mg Clopidogrel Bisulfate (Plavix) 75 mg PO DAILY [facility] Last Admin: 04/14/18 10:46 Dose: 75 mg Docusate Sodium (Colace) 100 mg PO BID [facility] Last Admin: 04/14/18 17:28 Dose: 100 mg Enoxaparin Sodium (Lovenox) 40 mg SC DAILY [facility] Last Admin: 04/14/18 10:46 Dose: 40 mg Famotidine (Pepcid) 20 mg PO BID [facility] Last Admin: 04/14/18 17:28 Dose: 20 mg Gabapentin (Neurontin) 300 mg PO TID [facility] Last Admin: 04/14/18 17:28 Dose: 300 mg Hydromorphone HCl (Dilaudid) 1 mg IVP Q6H PRN PRN Reason: Pain, moderate (4-7) Last Admin: 04/12/18 07:50 Dose: 1 mg Insulin Human Regular (Novolin R) 0 unit SC [facility]; Protocol Last Admin: 04/14/18 16:22 Dose: Not Given Ondansetron HCl (Zofran Inj) 4 mg IVP Q6 PRN PRN Reason: Nausea/Vomiting - Labs Labs: 04/14/18 08:53 04/14/18 08:53 - Constitutional Appears: Well, Non-toxic, No Acute Distress - Head Exam Head Exam: ATRAUMATIC, NORMOCEPHALIC - Respiratory Exam Respiratory Exam: NORMAL BREATHING PATTERN. absent: Accessory Muscle Use, Respiratory Distress - Cardiovascular Exam Cardiovascular Exam: RRR - GI/Abdominal Exam GI & Abdominal Exam: Soft. absent: Distended - Extremities Exam Additional comments: right leg with dressings dry, intact, with minimal old sero-sanguinous saturation. Palpable TP and dopplerable DP - Neurological Exam Neurological Exam: Alert, Awake - Psychiatric Exam Psychiatric exam: Normal Affect, Normal Mood - Skin Skin Exam: Dry, Warm Assessment and Plan (1) S/P popliteal-distal bypass surgery Status: Acute (2) Peripheral arterial occlusive disease Status: Chronic (3) Post-op pain Status: Acute (4) Diabetes Status: Chronic (5) TIA (transient ischemic attack) Status: Chronic - Assessment and Plan (Free Text) Assessment: 48F s/p popliteal-tibialis posterior bypass Plan: Patient recovering well, will continue to encourage ambulation with PT--Patient currently has not placed any weight on affected leg Continue current medical regimen Will coordinate discharge planning with social work Discussed with Dr. Geetha Mcintyre, PGY2
[2018-04-14] MEDS: HYDROmorphone 1 mg/ml ISec IVP PRN (22:43)
[2018-04-15 08:19] VITALS: O2SAT 95
[2018-04-15] MEDS: (Novolin R) Insulin Human Regular 100 units/ml vial SC SCH ×2 (08:30→12:30)
[2018-04-15] MEDS: Enoxaparin 40 mg Syringe SC SCH (09:50)
[2018-04-15 15:58] VITALS: BP 107/76; PULSE 88; TEMP 98.6
--- NOTE | 2018-04-27 19:35 | DS ---
HOSPITAL COURSE: The patient is a 48-year-old woman, who was admitted to the hospital on 04/11/2018, underwent a right popliteal posterior tibial bypass at the ankle using cephalic vein harvested from the left arm. Postoperatively, she remained in the hospital till 04/14/2018, where she was discharged to rehabilitation center. At the termination of the operation, she had a good pulse throughout the graft and palpable pulses at the wrist. The postoperative course is otherwise complicated and she was discharged to rehab. DIAGNOSIS: Ischemic ulceration of the foot. PROCEDURE CARRIED OUT: A right popliteal posterior tibial bypass to reverse cephalic vein harvested from left arm. The patient did not require blood transfusions and she was discharged to rehab. Salvatore Iniguez Jr., MD
== END 2018-04-15 16:41 | DRG 253 ==
LOC: C.9S 06:30 → C.9I 13:22 → C.5S 04-14 14:49
PROVIDERS: ADMIT Surgery Vascular Surgery; ATTEND Surgery Vascular Surgery
PROC: 041 Lower Arteries, Bypass (ICD-10-PCS; 2018-04-11)
PROC: 05BF3ZZ Excision of Left Cephalic Vein, Percutaneous Approach (ICD-10-PCS; principal; 2018-04-11 07:45)
DX: E11.51 Type 2 diabetes mellitus with diabetic peripheral angiopathy without gangrene (principal); L97.819 Non-pressure chronic ulcer of other part of right lower leg with unspecified severity; E11.621 Type 2 diabetes mellitus with foot ulcer; E11.622 Type 2 diabetes mellitus with other skin ulcer; F17.210 Nicotine dependence, cigarettes, uncomplicated; Z86.73 Personal history of transient ischemic attack (TIA), and cerebral infarction without residual deficits; G43.909 Migraine, unspecified, not intractable, without status migrainosus; Z80.1 Family history of malignant neoplasm of trachea, bronchus and lung

== ENCOUNTER 2018-07-05 09:22 | Outpatient (CLI) | payer MEDICARE | END 2018-07-05 09:23 | disposition home or self-care (01) | LOC: C.VASC 09:22 ==

== ENCOUNTER → 2018-07-27 | Day surgery (SDC) | payer MEDICARE ==
[2018-07-21 14:35] VITALS: BMI 25.7
[~2018-07-27] MED LIST: Lidocaine 2% MPF (5 ml) Inj ONE; Midazolam 2 MG/2 ML VIAL ONE; Nitroglycerin 50mg in D5W 50 MG/250 ML BOTTLE IV ONE; Propofol 10 mg/ml Inj (20 ML) ONE
--- NOTE | 2018-07-27 10:03 | PCM.SURG1 ---
Surgeon's Initial Post Op Note - Surgeon's Notes Surgeon: jero Heeler Machine: 0 Type of Anesthesia: IV Sedation Anesthesia Administered By: faith Pre-Operative Diagnosis: vein graft stenosis Operative Findings: 99% stenosis at distal anastomosis Post-Operative Diagnosis: same Operation Performed: aortofemoral angiogram. selective catherization of right femoral artery. balloon angioplasty og fraft / PT anastomosis. mynx left groin Specimen/Specimens Removed: 0 Estimated Blood Loss: EBL {In ML}: 50 Blood Products Given: N/A Drains Used: No Drains Post-Op Condition: Good Date of Surgery/Procedure: 07/27/18 Time of Surgery/Procedure: 10:02
--- NOTE | 2018-07-28 08:10 | VAS ---
DATE: 07/27/2018 PREOPERATIVE DIAGNOSIS: Stenosis of vein graft. PROCEDURES CARRIED OUT: 1. Aortofemoral angiogram via left groin with selective catheterization of right femoral artery. 2. Balloon angioplasty using a 2 x 2.5 mm balloon of the distal anastomosis. SURGEON: Salvatore Iniguez Jr., MD ASSISTANTS: None. ANESTHESIOLOGIST: Declan Flannery DO ANESTHESIA: Local with sedation. 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 She presented with poor healing of the wounds._ imaging was done which suggested interval stenosis at the distal anastomosis. OPERATIVE FINDINGS: 1. Initial pictures suggested that there was a stenosis at the origin of femoral artery. This was subsequently disproved. 2. There was an 99% stenosis at the distal anastomosis. The initial films also revealed some extravasation to this area during manipulation. This was not seen on the subsequent films and was completely stopped by the time we finished the procedure. At the time of the procedure, we had direct flow through into the posterior tibial arterial branch after using a 2.5 mm balloon. PROCEDURE AND FINDINGS: The rest of the intraoperative findings were unremarkable. Detailed pictures were not taken of the left leg below the knee due to the patient's body habitus. DESCRIPTION OF PROCEDURE: The patient was given local anesthesia. Using ultrasound guidance and micropuncture technique, the left groin was punctured. Under fluoroscopic control, a catheter was advanced to the level of the renal arteries. Pictures were taken in this level down using overlapping fashion. We then advanced this 6-[place] sheath over the aortic bifurcation position to popliteal artery. We selected and we catheterized the vein graft, and with some difficulty, we were able to eventually get back into the posterior tibial artery distally. Initially, there was some extravasation. However, this eventually subsided. We then placed an 0.035 wire distally, guided this with a 2 x 2.5 mm balloon with excellent cosmetic results. with nitroglycerin. Full heparinization was carried out. There were no other operative complications or problems. On the way, we took additional films. The right groin did not show any residual stenosis in this location. OPERATION CARRIED OUT: An aortofemoral angiogram via left groin with selective catheterization of the right femoral artery, balloon angioplasty of distal anastomosis using a 2 x 2.5 mm balloon with excellent cosmetic results. Salvatore Iniguez Jr., MD cc: Leonel Guillen MD MTDMundo
== END | disposition home or self-care (01) ==
LOC: C.SPRAD 06:27
PROVIDERS: ATTEND Surgery Vascular Surgery
DX: I70.462 Atherosclerosis of autologous vein bypass graft(s) of the extremities with gangrene, left leg (principal); E11.9 Type 2 diabetes mellitus without complications; E78.5 Hyperlipidemia, unspecified
CPT/HCPCS: 36247; 37228; 75625; 75716; 75774; 76937; 84703; C1725; C1760; C1766; C1769; C1887; C1893; J1644; J2250; J3010